=== PATIENT | male | born 1970 ===

== ENCOUNTER 2017-12-17 07:36 | Day surgery (SDC) | payer OTHER ==
[~2017-12-17 07:36] MED LIST: Buffered Lidocaine 0.9% SYRIN* 5 ML/SYR SYRINGE INTRADERM ONE; Dexamethasone IV* 4 MG/ML 1 ML (4 MG) IV SLOW PU ONE; Famotidine IV* 10 MG/ML 2 ML (20 mg) IV ONE
[2017-12-17] MEDS ORDERED: Famotidine TAB* 20 MG ONE (07:39)
[2017-12-17] MEDS ORDERED: Dexamethasone IV* 4 MG/ML 1 ML (4 MG) ONE (07:39)
[2017-12-17] MEDS ORDERED: ceFAZolin 2 GM PREMIX (*) 2 GM/50 ML BAG IVPB ONE (07:39)
[2017-12-17] MEDS ORDERED: Buffered Lidocaine 0.9% SYRIN* 5 ML/SYR SYRINGE ONE (07:40)
[2017-12-17] MEDS ORDERED: fentaNYL* 50 MCG/ML 2 ML VIAL (100 MCG VIAL) ONE (10:57)
[2017-12-17] MEDS ORDERED: Midazolam* 1 MG/ML 5 ML VIAL (5 MG) ONE (10:57)
[2017-12-17] MEDS ORDERED: Propofol* 10 MG/ML 20 ML BTL IV PUSH ONE (11:02)
[2017-12-17] MEDS ORDERED: Mivacurium Chloride* 20 MG/10 ML VIAL IV ONE (11:02)
[2017-12-17] MEDS ORDERED: fentaNYL* 50 MCG/ML 2 ML VIAL (100 MCG VIAL) IV PRN (11:06)
[2017-12-17] MEDS ORDERED: PROCHLORPERAZINE INJ 5 MG/ML 2 ML VIAL IV PRN (11:06)
[2017-12-17] MEDS ORDERED: HYDROcodone/ACETAMIN 5-325 MG* 1 TAB PO PRN (11:06)
[2017-12-17] MEDS ORDERED: Naloxone* 0.4 MG/ML 1 ML VIAL IV PRN (11:06)
[2017-12-17] MEDS ORDERED: oxyCODONE/Acetamin 5/325 MG* TAB PO PRN (11:06)
[2017-12-17] MEDS ORDERED: Bupivacaine 0.25% SDV* 30 ML ONE (11:10)
[2017-12-17] MEDS ORDERED: Lidocaine 1% MPF wEPI 200,000* 30 ML SDV ONE (11:26)
[2017-12-17] MEDS ORDERED: Ondansetron INJ* 2 MG/ML VIAL ONE (12:36)
[2017-12-17] MEDS ORDERED: Ketorolac INJ* 30 MG/ML 1 ML VIAL ONE (13:03)
[2017-12-17 14:18] VITALS: BP 118/69
--- NOTE | 2017-12-18 08:47 | OP ---
CC: Dr. Zhou.* DATE OF OPERATION: 12/17/17 - SDS DATE OF : 68 SURGEON: Armond Perez MD POLISHING MACHINE TENDER: RODNEY Dyson ANESTHESIOLOGIST: Dr. Serrano. ANESTHESIA: General with local. PRE-OP DIAGNOSIS: Right inguinal hernia. POST-OP DIAGNOSIS: Right indirect inguinal hernia. OPERATIVE PROCEDURE: Totally extraperitoneal laparoscopic repair with mesh of an indirect right inguinal hernia. ESTIMATED BLOOD LOSS: Minimal. SPECIMENS: None. COMPLICATIONS: None. DRAINS: None. WOUND CLASSIFICATION: I. DESCRIPTION OF PROCEDURE: Written informed consent was obtained, the right groin was marked with indelible ink and preoperative antibiotics were administered. The patient was taken to the operating room, placed in the supine position. Sequential compression devices and warming blanket were applied. General anesthesia was administered. A Bass catheter was inserted. The abdomen and both groins were prepped and draped in the usual sterile fashion. Time-out verification was completed. Initially, a small transverse incision was made at the midline, edges below the umbilicus and the medial aspect of the right rectus sheath was identified and divided transversely to expose the rectus muscle. The muscle was retracted laterally to expose the posterior sheath and this retromuscular space was developed with a Ayana clamp. Subsequently, the pace-maker balloon was inserted and passed down to the pubic tubercle. The camera was then inserted and the pacemaker balloon was inflated with about 8 to 10 squeezes of the insufflation pump. The balloon was then deflated and then removed and a 12-mm blunt port was inserted into the space and insufflated and the extraperitoneal space was insufflated to 12 mmHg. The patient was placed in Trendelenburg position. The camera was inserted and it was obvious that the midline had been dissected nicely and up to the right with an exposed pubic tubercle and Lam's ligament. Under direct vision, two 5-mm ports were placed, each about 3 fingerbreadths below the original 10 mm to 12 mm port site under direct vision in the midline. Next, with care, we were able to identify the Lam's ligament. On the right, this extended laterally towards the vessels. The epigastric vessels were then identified as it ran up on to the anterior abdominal wall and these were protected from injury throughout. Lateral to the epigastrics, the anterior abdominal wall was identified as well as the ileopubic tract and there was some adventitial tissue, which was taken down with some blunt and sharp dissection out to the iliac crest. Working lateral to medial, I was able to identify the peritoneal reflection as it ran down towards the internal ring. It was apparent with careful blunt dissection that there was an indirect inguinal hernia with the peritoneum extending down into the internal ring. With care, this was dissected from the rounding spermatic cord, both medial and lateral and reduced well back up into the abdominal cavity. The vas deferens and spermatic cord and its contents were identified and protected from injury throughout. Also noted was a lipoma of the spermatic cord, extending down into the internal ring, which was reduced back into the retroperitoneum as well. The direct space appeared to be intact without evidence of direct space or femoral hernia. Next, the 10 cm x 15 cm Covidien ProGrip extraperitoneal mesh was then rolled and passed into the extraperitoneal space and was unfurled and it was attached to the pubic tubercle and slightly to the left of midline. The Lam's ligament has extended laterally and was unrolled up on to the anterior abdominal wall to cover both the indirect and direct spaces nicely. Care was taken to make sure that the peritoneal reflection was dissected more cranially and there was no chance of this migrating beneath the mesh along the retroperitoneal area of the mesh itself. More anteriorly, the mesh covered on to the anterior abdominal wall, both the direct and indirect spaces with a generous overlap and extended almost out to the iliac crest laterally. The mesh sat in good position without wrinkling or folds. Once hemostasis was assured, the mesh was held into place with 2 graspers and the extraperitoneal space was desufflated under direct vision to prevent the clamshell effect of the mesh and it appeared to be intact. All ports were then removed. The anterior rectus fascia at the umbilicus was closed with interrupted 0 Vicryl suture. The skin and all 3 incisions were approximated with subcuticular 4-0 Polysorb suture. Steri-Strips were applied. The patient tolerated the procedure well and was taken to the recovery room in stable condition. [id number]/[facility] #: [id number] [facility]ALLoida
== END 2017-12-17 15:00 | disposition home or self-care (01) ==
LOC: OR 07:36
PROVIDERS: ATTEND Surgery
DX: K40.90 Unilateral inguinal hernia, without obstruction or gangrene, not specified as recurrent (principal)
CPT/HCPCS: A9270-GY; J0690; J1100; J1885; J2001; J2250; J2405; J2704; J3010